=== PATIENT | female | born 1945 | race African-American/Black ===

== ENCOUNTER 2024-01-17 20:29 | Inpatient (IN) | payer OTHER ==
[~2024-01-17] VITALS: Ht 167.6 cm; Wt 56.7 kg
[2024-01-17 21:35] LABS: HEMATOCRIT. 31.3 % (36.0-48.0); HEMOGLOBIN. 10.1 g/dL (12.0-16.0); MEAN CORPUSCULAR HEMOGLOBIN 22.3 pg (28.0-32.0); MEAN CORPUSCULAR HGB CONC 32.3 g/dL (31.0-37.0); MEAN CORPUSCULAR VOLUME 69.1 fL (81.0-99.0); MEAN PLATELET VOLUME 8.7 fl (7.4-10.4); PLATELET 421 x1000/uL (130-400); RED BLOOD CELL COUNT 4.53 mill/uL (4.2-5.4); RED CELL DISTRIBUTION WIDTH 16.6 % (11.6-14.6); WHITE BLOOD COUNT 8.5 x1000/uL (4.5-11.0)
[2024-01-17 21:36] LABS: DIFFERENTIAL COMMENT 1
[2024-01-17 21:43] LABS: CARBON DIOXIDE 27 mEq/L (21-32); CHLORIDE 100 mEq/L (98-107); POTASSIUM 3.2 mEq/L (3.5-5.1); SODIUM 134 mEq/L (136-145)
[2024-01-17 21:48] LABS: CREATININE 1.4 mg/dL (0.6-1.0)
[2024-01-17 21:49] LABS: AMMONIA < 17 uMol/L (<32); GLUCOSE 102 mg/dL (70-105); UREA NITROGEN BLOOD 22 mg/dL (9-23)
[2024-01-17 21:50] LABS: ALANINE AMINOTRANSFERASE 12 IU/L (10-49); ALBUMIN 4.4 g/dL (3.2-4.8); ASPARTATE AMINOTRANSFERASE 25 IU/L (<34)
[2024-01-17 21:51] LABS: BILIRUBIN DIRECT 0.1 mg/dL (<=3.0); BILIRUBIN TOTAL 0.4 mg/dL (0.1-1.0); PROTEIN TOTAL 7.9 g/dL (6.0-8.3)
[2024-01-17 21:53] LABS: THYROID STIMULATING HORMONE 1.11 uIU/mL (0.55-4.78)
[2024-01-17 21:54] LABS: D-DIMER 10.44 mg/L FEU (<0.50); ETHANOL BLOOD < 10 mg/dL (<10); PROTHROMBIN TIME 11.2 sec (9.6-11.0)
[2024-01-17 21:55] LABS: CALCIUM 18.2 mg/dL (8.7-10.4); TROPONIN I HIGH SENSITIVITY 139 ng/L (3.0-34)
[2024-01-17] MEDS: SODIUM CHLORIDE 0.9% 1,000 ML IV ONE (22:00)
[2024-01-17 22:34] LABS: PLATELET ESTIMATE INCREASED
[2024-01-17 22:35] LABS: ANISOCYTOSIS 1+; HYPOCHROMASIA 1+; MICROCYTOSIS 3+
[2024-01-17] MEDS: ASPIRIN 81MG TABLET PO ONE (22:48)
[2024-01-17] MEDS ORDERED: PAMIDRONATE DISODIUM 90 MG in SODIUM CHLORIDE 0.9% 500 ML IV ONE (23:45)
[2024-01-18 00:11] LABS: TROPONIN I HIGH SENSITIVITY 144 ng/L (3.0-34)
[2024-01-18] MEDS: IOHEXOL-350 100 ML BOTTLE ONE ×2 (00:18→03:55)
[2024-01-18] MEDS: PAMIDRONATE DISODIUM 90 MG in SODIUM CHLORIDE 0.9% 1,000 ML IV NR (03:54)
[2024-01-18] MEDS ORDERED: ONDANSETRON HCL 4MG/2ML INJ IV PRN (11:15)
[2024-01-18] MEDS ORDERED: CLONIDINE 0.1MG TABLET PO PRN (11:15)
[2024-01-18] MEDS ORDERED: IPRATROPIUM/ALBUTEROL 0.5-3(2.5)MG/3ML NEB HHN PRN (11:15)
[2024-01-18] MEDS ORDERED: DOCUSATE SODIUM 100MG CAPSULE PO PRN (11:15)
[2024-01-18] MEDS ORDERED: ACETAMINOPHEN 325MG TABLET PO PRN ×2 (11:15)
[2024-01-18] MEDS: ENOXAPARIN 80MG/0.8ML SYR SUBCUT SCH (12:00)
[2024-01-18] MEDS: POTASSIUM CHLORIDE 20MEQ TABLET SR PO NR (12:00)
[2024-01-18 12:10] LABS: BG BASE EXCESS 0.5 mmol/L (-2.0-3.0); BG CARBOXYHEMOGLOBIN 0.9 % (0.5-1.5); BG DEOXYHEMOGLOBIN 6.6 % (0.0-5.0); BG FRACTION INSPIRED OXYGEN 21; BG HCO3 ACT 23.7 mmol/L (21.0-28.0); BG METHEMOGLOBIN 0.3 % (0.5-1.5); BG OXYGEN SATURATION 93.3 % (94.0-98.0); BG OXYHEMOGLOBIN 92.2 % (94.0-98.0); BG PCO2 32.8 mmHg (32.0-45.0); BG PH 7.476 (7.350-7.450); BG PO2 71.8 mmHg (83.0-108.0); BG SAMPLE SITE LEFT BRACHIAL; BG TOTAL HEMOGLOBIN 10.4 g/dL (12.0-16.0); BG VENT MODE ROOM AIR
[2024-01-18] MEDS: PANTOPRAZOLE SODIUM 40 MG/VIAL IV SCH (12:44)
[2024-01-18] MEDS: SODIUM CHLORIDE 0.9% 1,000 ML IV SCH ×2 (12:44→17:35)
[2024-01-18 13:21] LABS: HEMATOCRIT. 33.1 % (36.0-48.0); HEMOGLOBIN. 10.6 g/dL (12.0-16.0); MEAN CORPUSCULAR HEMOGLOBIN 22.1 pg (28.0-32.0); MEAN CORPUSCULAR VOLUME 69.2 fL (81.0-99.0); MEAN PLATELET VOLUME 8.9 fl (7.4-10.4); PLATELET 402 x1000/uL (130-400); RED BLOOD CELL COUNT 4.79 mill/uL (4.2-5.4); RED CELL DISTRIBUTION WIDTH 16.9 % (11.6-14.6); WHITE BLOOD COUNT 10.5 x1000/uL (4.5-11.0)
[2024-01-18 13:24] LABS: DIFFERENTIAL COMMENT 1
[2024-01-18 13:34] LABS: PROTHROMBIN TIME 11.1 sec (9.6-11.0)
[2024-01-18 13:38] LABS: CARBON DIOXIDE 27 mEq/L (21-32); CHLORIDE 104 mEq/L (98-107); SODIUM 137 mEq/L (136-145)
[2024-01-18 13:43] LABS: CREATININE 1.1 mg/dL (0.6-1.0); GLUCOSE 98 mg/dL (70-105)
[2024-01-18 13:44] LABS: LDL CHOLESTEROL 121 mg/dL (5-100); PROTEIN TOTAL 7.7 g/dL (6.0-8.3); TRIGLYCERIDE 94 mg/dL (0-150); UREA NITROGEN BLOOD 20 mg/dL (9-23)
[2024-01-18 13:45] LABS: ALANINE AMINOTRANSFERASE 10 IU/L (10-49); ALBUMIN 4.3 g/dL (3.2-4.8); ASPARTATE AMINOTRANSFERASE 24 IU/L (<34); BILIRUBIN DIRECT 0.1 mg/dL (<=3.0); CHOLESTEROL 214 mg/dL (<200); HDL CHOLESTEROL 68 mg/dL (>65)
[2024-01-18 13:46] LABS: BILIRUBIN TOTAL 0.4 mg/dL (0.1-1.0); PHOSPHORUS 2.3 mg/dL (2.5-4.9)
[2024-01-18 13:47] LABS: T4 FREE 1.29 ng/dL (0.89-1.76)
[2024-01-18 13:53] LABS: CALCIUM 16.9 mg/dL (8.7-10.4)
[2024-01-18] MEDS: HYDRALAZINE HCL 25MG TABLET PO SCH (14:00)
[2024-01-18] MEDS: NITROGLYCERIN OINT 1GM/INCH UDPKT TD SCH (14:00)
[2024-01-18 14:21] LABS: ANISOCYTOSIS 1+; MICROCYTOSIS 2+; PLATELET ESTIMATE INCREASED
[2024-01-18 15:00] VITALS: BP 133/79; PULSE 71; RESP 20; TEMP 36.61404; TEMP 36.6404; O2SAT 99
[2024-01-18 16:00] VITALS: BP 130/72; PULSE 74; RESP 19; TEMP 36.78072; O2SAT 100
[2024-01-18] MEDS: ENOXAPARIN 60MG/0.6ML SYR SUBCUT SCH (18:42)
[2024-01-18] MEDS: CALCITONIN,SALMON, 3.7 ML NASAL SPRAY ONENSTRL SCH (18:43)
[2024-01-18] MEDS: KCL 20MEQ/100ML PREMIX 100 ML IV SCH (18:43)
[2024-01-18 20:00] VITALS: BP 164/81; PULSE 66; RESP 19; TEMP 35.94732; O2SAT 93
[2024-01-18 21:13] VITALS: RESP 20
[2024-01-18] MEDS: HYDROCODONE/ACETAMINOPHEN 5/325MG TABLET PO PRN (21:13)
[2024-01-18 21:28] VITALS: BP 164/81; PULSE 66; TEMP 97.5; O2SAT 96
[2024-01-18] MEDS ORDERED: NALOXONE HCL 0.4MG/ML VIAL IV PRN (21:45)
[2024-01-19] MEDS ORDERED: POTASSIUM CHLORIDE 20MEQ TABLET SR PO SCH (09:00)
[2024-01-19] MEDS ORDERED: ASPIRIN 81MG TABLET PO SCH (09:00)
== END 2024-01-18 22:20 | disposition short-term general hospital (02) | DRG 435 ==
LOC: ER 20:29 → 5WST 22:15 → EDBEDREQ 22:17 → 8WST 01-18 15:12
PROVIDERS: ADMIT Internal Medicine; ATTEND Internal Medicine
DX: C78.7 Secondary malignant neoplasm of liver and intrahepatic bile duct (principal); G93.41 Metabolic encephalopathy; I21.A1 Myocardial infarction type 2; I26.99 Other pulmonary embolism without acute cor pulmonale; J96.01 Acute respiratory failure with hypoxia; N17.9 Acute kidney failure, unspecified; M48.56XA Collapsed vertebra, not elsewhere classified, lumbar region, initial encounter for fracture; E83.52 Hypercalcemia; D50.9 Iron deficiency anemia, unspecified; E78.5 Hyperlipidemia, unspecified; Z20.822 Contact with and (suspected) exposure to COVID-19; I12.9 Hypertensive chronic kidney disease with stage 1 through stage 4 chronic kidney disease, or unspecified chronic kidney disease; E83.39 Other disorders of phosphorus metabolism; N18.9 Chronic kidney disease, unspecified; E87.6 Hypokalemia; K76.89 Other specified diseases of liver; Z85.3 Personal history of malignant neoplasm of breast
CPT/HCPCS: 36415; 36600; 71045; 71275; 80048; 80061; 80076; 80320; 82140; 82330; 82375; 82550; 82553; 82805; 82962; 83605; 83735; 83880; 84100; 84145; 84439; 84443; 84480; 84484; 85025; 85379; 86850; 86900; 87426; 93005; 93970; 99291; C1893; J1650; J2430; J2470; J3480; J7030; J7040; Q9967; G0480